=== PATIENT | male | born 1970 | race Caucasian/White ===

== ENCOUNTER 2016-09-12 06:29 | Emergency (ER) | payer OTHER ==
--- NOTE | 2016-09-12 09:26 | ED NURSING NOTES ---
Clinical Report - Nurses Merged With [facility] [address] [place] [address] 09/12/2016 6:31 [id number] Triage time 06:47 Sep 12 2016. Acuity: LEVEL 3. Chief Complaint: COUGH. SEPSIS SCREEN: Sepsis Screen: negative. Infection suspected/documented. PHILLIP COMA SCORE: Phillip Coma Scale: 15- eyes open spontaneously (4); best verbal response- oriented x 4 (5); best motor response- obeys commands (6). --06:54 Kelin Eden 06:47 09/12/16. BP: 148/78. HR: 84. RR: 20. O2 saturation: 99% on room air. Temp: 98.5 F (oral). Pain level now: 02/01. --06:54 Kelin Eden. Weight: 104.3 kg stated. Height/Length: 71 inches Per Patient. BMI: 32.1. --06:53 Kelin Eden. Medications ASA Oral. --06:49 Kelin Eden Lantus Subcutaneous. --06:49 Kelin Eden MetFORMIN HCl Oral. --06:49 Kelin Eden Lisinopril Oral. --06:49 Kelin Eden. Medication/allergy information source: the patient. --06:54 Kelin Eden. Allergies No Known Drug Allergy. --06:49 Kelin Eden. History Arrived by private vehicle. Historian: patient. Accompanied by family. Primary physician ([facility]). Onset. (3 months). ( Patient reports cough for three months. He states over the last three days he has had cough that results in vomiting. He reports two days of watery diarrhea as well. He states his back hurts from coughing so much. He reports being exposed to his daughter who was hospitalized with a serious stomach flu and respiratory symptoms. Patient reports he thinks he may have asthma but is not sure.). PAST MEDICAL HX: Diabetes mellitus. Hypertension. He has had contact with a sick individual. Immunizations: up-to-date. SOCIAL HX: Former smoker (smokes occasional cigarettes). No infectious disease exposure. ABUSE ASSESSMENT: No report of abuse. FALL RISK ASSESSMENT: Fall risk assessment completed. No fall risk identified. NUTRITIONAL RISK ASSESSMENT: The nutritional risk assessment revealed no deficiencies. FUNCTIONAL ASSESSMENT: Functional assessment: no impairments noted. LEARNING NEEDS ASSESSMENT: The learning needs assessment revealed no barriers. SKIN INTEGRITY ASSESSMENT: Skin integrity risk assessment completed. No skin integrity risk identified. --06:54 Kelin Eden. PROBLEMS: Cellulitis. Laceration. Depression. Arthritis. Hypertension. Diabetes Mellitus. --06:49 Kelin Eden. ADDITIONAL SURGERIES: Shoulder Surgery. --06:49 Kelin Eden. Interventions ID band on patient. To treatment room. --06:54 Kelin Eden. PHYSICAL ASSESSMENT GENERAL / NEURO / PSYCH: Alert. Oriented X 4. Appears in pain. HEENT: Mucous membranes are pink. RESPIRATORY: Respirations not labored. CVS: Normal sinus rhythm noted. GI / : Emesis noted. Has vomited twice. SKIN: Skin is warm and dry. --06:54 Kelin Eden. NURSING PROGRESS NOTES Pulse oximeter and NIBP monitor placed on patient; monitor alarms on. Patient gowned. Reassurance given to the patient. Two patient identifiers checked. Call light placed in reach. Side rails up x 1. Bed placed in lowest position. Brakes of bed on. Patient ready for evaluation- chart flagged and ED physician notified. --06:54 Kelin Eden 07:16 09/12/2016 Site #1 started via IV in the right forearm with an 20g angiocath, with aseptic technique and good blood return; one attempt. Blood drawn: rainbow set. Labeled in the presence of the patient and sent to the lab. Saline lock flushed with 10 mL saline. --07:16 Kelin Eden 07:16 09/12/2016 Started bag #1 1000 mL IV Fluids IV NS (Saline); at 1000 mL/hr over 1 hour(s) via site #1. Allergies verified and confirmed 5 rights. IV patency established. IV site checked: no pain, redness, or swelling. IV flushed thoroughly pre- and post-medication administration. --07:16 Kelin Eedn Patient ID band checked for patient name and birthdate: patient confirmed. Blood samples drawn from the right forearm peripheral IV site by nurse ; labeled in presence of the patient and sent to lab: rainbow set. Line flushed with 10 mL normal saline post blood draw. --07:18 Kelin Eden Care transferred and report given (Brianne RN). --07:21 Kelin Eden 07:26 09/12/2016 Albuterol Neb TX Nebulizer 1 unit dose given. Given by the respiratory therapist. Allergies verified and confirmed 5 rights. Ha Banuelosson --07:26 Valdo Banuelos 07:54 09/12/16. BP: 138/69. HR: 89. RR: 18. O2 saturation: 94%. Temp: 98.1 F. --07:54 Addie España 08:09 09/12/2016 Insulin REG IVP 7 unit given over 1 minute(s) via site #1. Allergies verified and confirmed 5 rights. IV patency established. IV site checked: no pain, redness, or swelling. IV flushed thoroughly pre- and post-medication administration. IVP given by RN. --08:09 Brianne Ramirez R.N. 09:19 09/12/16. Checked patient name and birthdate: patient confirmed urine collected; sample sent to lab for urinalysis. Specimen labeled in the presence of the patient. --09:19 Brianne Ramirez R.N. ( Glucose-244). --09:23 Addie España 09:56 09/12/2016 Site #1 removed. Bandage applied. --09:56 Won Stephens R.N. 09:57 09/12/2016 IV Fluids IV NS Discontinued: bag #1 infused. Total amount infused: 1000 mL. IV patency established. IV site checked: no pain, redness, or swelling. IV flushed thoroughly. --09:57 Won Stephens R.N. DISPOSITION / DISCHARGE 09:49 09/12/16. BP: 106/54. HR: 85. RR: 16. O2 saturation: 98%. Temp: 98.3 F. Pain level now: 01/02. --09:50 Won Stephens R.N. Condition at departure: improved and stable. The goals identified in the patient's plan of care were met. No learning barriers present. Discharge instructions provided and reviewed with the patient and spouse. Reviewed medication(s) side effects information. Prescription(s) given to the patient. Reviewed referral to a primary care physician for followup. Activity restrictions (rest) reviewed (for the next 2 days). Patient and spouse verbalized understanding. Written instructions provided in Chinese. The patient was discharged home and accompanied by spouse. He left the Emergency Department ambulatory and via private vehicle. Spouse driving. ( Pt stable, VSS, afebrile, ambulatory.). --09:56 Won Stephens R.N. Departure time: 09:56 Sep 12 2016. --09:56 Won Stephens R.N. Locked/Released at 09/12/2016 18:35 by Brianne Ramirez R.N.
--- NOTE | 2016-09-12 09:26 | ED CLINICAL REPORT ---
Clinical Report - Physicians/Mid Levels [facility] [address] [place] [address] 09/12/2016 6:31 [id number] Time Seen: 06:59 Sep 12 2016. Arrived- By private vehicle. Historian- patient. CPT: ER phys charges level 4 (#[id number]). HISTORY OF PRESENT ILLNESS Chief Complaint: COUGH. This started about 3 months [employer]; Onset. (3 months). ( Patient reports cough for three months. He states over the last three days he has had cough that results in vomiting. He reports two days of watery diarrhea as well. He states his back hurts from coughing so much. He reports being exposed to his daughter who was hospitalized with a serious stomach flu and respiratory symptoms. Vomiting and diarrhea have been present for 2 days. The rest of the family has the same thing. and is still present. The illness is described as moderate. The patient has had a cough and difficulty breathing. No sputum production, chest discomfort or pain, fever or chills. No sore throat, hoarseness, nasal congestion or discharge or sinus pressure. Additional history - The patient has had contact with a sick individual. Similar symptoms previously: None. Recent medical care: Not recently seen/assessed. REVIEW OF SYSTEMS The patient has had nausea, vomiting and diarrhea. No pedal edema, calf pain or skin rash. Pt living in house with mold, roommates cats and kids that smoke. All make him react with cough. All systems otherwise negative, except as recorded above. PAST HISTORY Cellulitis. Laceration. Depression. Arthritis. Hypertension. Diabetes Mellitus. Shoulder Surgery. Medications: Lisinopril Oral. MetFORMIN HCl Oral. Lantus Subcutaneous. ASA Oral. Allergies: No Known Drug Allergy. SOCIAL HISTORY Former smoker. No alcohol use or drug use. ADDITIONAL NOTES The nursing notes have been reviewed. PHYSICAL EXAM Vital Signs: 09/12/2016 06:47 BP: 148/78. HR: 84. RR: 20. O2 saturation: 99%. Temp: 98.5 F. Pain level now: 10/10. Appearance: Alert. No acute distress. Eyes: Eyes normal inspection. ENT: Ears normal. Nose normal. Pharynx normal. Uvula midline. Neck: Normal inspection. CVS: Normal heart rate and rhythm. Heart sounds normal. Pulses normal. Respiratory: No respiratory distress. Breath sounds normal. Abdomen: Soft and nontender. Skin: Skin warm. Normal skin color. No rash. Extremities: Extremities exhibit normal ROM. No lower extremity edema. Neuro: Oriented X 3. No motor deficit. No sensory deficit. LABS, X-RAYS, AND EKG Chest X-ray: Normal Chest X-Ray. Laboratory Tests: CBC w Diff: (CLAYTON: 09/12/2016 07:00) ( [facility] [place]) Final results Test Result Flag Units (Reference) WHITE BLOOD COUNT 6.1 K/uL (4.5-11.5) RED BLOOD COUNT 4.46 L M/uL (4.50-5.90) HEMOGLOBIN 13.6 gm/dL (13.5-17.5) HEMATOCRIT 39.6 L % (41.0-53.0) MEAN CELL VOLUME 89 fL (80-100) MEAN CORPUSCULAR HGB 31 pg (26-34) MEAN CORPUSCULAR HGB CONC 35 g/dL (31-37) RED CELL DISTRIBUTION WIDTH 14.9 H % (11.6-14.8) PLATELET COUNT 140 L K/uL (150-400) NEUTROPHIL % 73.6 % (50-75) LYMPH % 11.7 L % (25-40) MONO % 13.4 % (3-14) EOSINOPHIL % 0.9 % (0-4) BASOPHIL % 0.4 % (0-2) Acetone, Serum: (CLAYTON: 09/12/2016 07:00) ( MsgRcvd 09/12/2016 08:35) Final results Test Result Flag Units (Reference) ACETONE, SERUM QUALITATIVE NEGATIVE (NEGATIVE) CHEM 13 PANEL: (CLAYTON: 09/12/2016 07:00) ( MsgRcvd 09/12/2016 07:38) IP Test Result Flag Units (Reference) GLUCOSE 424 H mg/dL (70-110) BUN 29 H mg/dL (7-18) CREATININE 1.2 mg/dL (0.6-1.3) Estimated GFR >60 mL/min Estimated GFR- >60 mL/min Note: Persistent reduction over 3 months in eGFR<60 mL/min/1.73 m2 defines CKD. Patients with eGFR values>=60 mL/min/1.73 m2 may also have CKD if evidence ofpersistent proteinuria. Additional information may be foundat www.kidney.org. SODIUM 129 L mmol/L (136-145) POTASSIUM 3.4 L mmol/L (3.5-5.1) CHLORIDE 96 L mmol/L (98-107) CARBON DIOXIDE 20 L mmol/L (21-32) CALCIUM 8.5 mg/dL (8.5-10.1) TOTAL PROTEIN 7.6 g/dL (6.4-8.2) ALBUMIN 3.5 g/dL (3.3-5.0) BILIRUBIN, TOTAL 0.4 mg/dL (0.0-1.0) ALKALINE PHOSPHATASE 107 U/L (46-116) AST (SGOT) 35 U/L (15-37) ALT (SGPT) 42 U/L (12-78) CPK 162 U/L (24-260) MAGNESIUM 1.7 L mg/dL (1.8-2.4) TROPONIN I <0.05 L ng/mL (0.00-1.5) TROPONIN REFERENCE RANGE:<0.1 NEGATIVE0.1-1.5 INDETERMINANT>1.5 POSITIVE . PROGRESS AND PROCEDURES Course of Care: Pt has had cough for the past month and may be allergies vs other. He also has a viral gastroenteritis that is going around the family. IV NS Albuterol HHN to see if it helps the cough. Insulin 7 units IV for BS of 450. 09:17 09/12/16. BS 242. Patient/family counseled. Disposition: Discharged. Condition: stable and improved. CLINICAL IMPRESSION Acute norovirus gastroenteritis. Moderate hyperglycemia Allergy induced cough. INSTRUCTIONS No strenuous activity. Rest. Do not work for two days until better. Take clear liquids only (frequent sips) for the next 12 hours until better. Advance diet as tolerated. Warnings: Further evaluation is necessary. GENERAL WARNINGS: Return or contact your physician immediately if your condition worsens or changes unexpectedly, if not improving as expected, or if other problems arise. Your Current Medications: CONTINUE TAKING THE FOLLOWING MEDICATIONS: ASA Oral. Lantus Subcutaneous. Lisinopril Oral. MetFORMIN HCl Oral. Prescription Medications: Zofran (orally disintegrating tablets) 4 mg: take 1 orally every 4 hours as needed for nausea. Dispense ten (10). No refill. Substitution is permissible. Albuterol HFA oral inhaler: inhale 2 puffs via spacer every 4 hours as needed for wheezing or difficulty breathing, until symptoms improve. Dispense one (1) unit. No refill. (also for cough.) prednisone 40 mg po q day times 3 days. Follow-up: Follow up with your doctor in five days. Call for an appointment. Understanding of the discharge instructions verbalized by patient and family. Discharge instructions reviewed with and understanding was verbalized by spouse. (Electronically signed by Kee Johnson MD 09/15/2016 22:53)
--- NOTE | 2016-09-12 09:26 | ED ORDER SUMMARY ---
..... Patient: ADAM GOMEZ [facility] VisitID: [id number] [address] [place] [address] 46y, M Registration Date/Time: 09/12/2016 ORDER SHEET Weight: 104.3 kg (stated) Allergies: No Known Drug Allergy GENERAL ORDERS: Chest 2V Urgent (07:12 09/12/2016 Arabella LEWIS) (Ack 7:15 TBergley) (8:09 MWinterer R.N.) Cardiac Panel Stat (07:09/12/2016 Arabella LEWIS) (Ack 7:15 TBergley) (8:09 MWinterer R.N.) TSH Urgent (:09/12/2016 Arabella LEWIS) (Ack 7:15 TBergley) (8:09 MWinterer R.N.) UA-Culture if indicated Urgent (07:09/12/2016 Arabella LEWIS) (Ack 7:15 TBergley) (9:19 MWinterer R.N.) Acetone, Serum Urgent (08:26 09/12/2016 Arabella LEWIS) (Ack 8:27 TBergley) (8:30 TBergley) MEDICATION ORDERS: Albuterol Neb Tx 2.5 mg (NOW, HHN) (with pre and post -peak flows.) (07:09/12/2016 Arabella LEWIS) (Ack 7:17 HSoule) (7:26 JZiglar) IV FLUIDS: IV NS : initial bolus 1000 mL (1000 mL/hr), then none - for X1 (NOW); Routine (07:09/12/2016 Arabella LEWIS) (Ack 7:16 HSoule) (7:16 HSoule) Insulin Reg IV 7 units (NOW) (07:55 09/12/2016 Arabella LEWIS) (Ack 7:58 MWinterer R.N.) (8:09 MWinterer R.N.) ORDER SHEET NOTES: [Electronically signed by Brianne Ramirez R.N. (18:35 09/12/2016)] [Electronically signed by Kee Johnson MD (22:53 09/15/2016)] [Electronically locked/signed by Brianne Ramirez R.N. (18:35 09/12/2016)]
--- NOTE | 2016-09-12 09:26 | ED ORDER SUMMARY ---
..... Patient: ADAM GOMEZ OrderSheet [facility] VisitID: [id number] [address] [place] [address] 46y, M Registration Date/Time: 09/12/2016 ORDER SHEET Weight: 104.3 kg (stated) Allergies: No Known Drug Allergy GENERAL ORDERS: Chest 2V Urgent (07:12 09/12/2016 Arabella LEWIS) (Ack 7:15 TBergley) (8:09 MWinterer R.N.) Cardiac Panel Stat (07:09/12/2016 Arabella LEWIS) (Ack 7:15 TBergley) (8:09 MWinterer R.N.) TSH Urgent (:09/12/2016 Arabella LEWIS) (Ack 7:15 TBergley) (8:09 MWinterer R.N.) UA-Culture if indicated Urgent (07:09/12/2016 Arabella LEWIS) (Ack 7:15 TBergley) (9:19 MWinterer R.N.) Acetone, Serum Urgent (08:26 09/12/2016 Arabella LEWIS) (Ack 8:27 TBergley) (8:30 TBergley) MEDICATION ORDERS: Albuterol Neb Tx 2.5 mg (NOW, HHN) (with pre and post -peak flows.) (07:09/12/2016 Arabella LEWIS) (Ack 7:17 HSoule) (7:26 JZiglar) IV FLUIDS: IV NS : initial bolus 1000 mL (1000 mL/hr), then none - for X1 (NOW); Routine (07:09/12/2016 Arabella LEWIS) (Ack 7:16 HSoule) (7:16 HSoule) Insulin Reg IV 7 units (NOW) (07:55 09/12/2016 Arabella LEWIS) (Ack 7:58 MWinterer R.N.) (8:09 MWinterer R.N.) ORDER SHEET NOTES: [Electronically signed by Brianne Ramirez R.N. (18:35 09/12/2016)] [Electronically signed by Kee Johnson MD (22:53 09/15/2016)] [Electronically locked/signed by Brianne Ramirez R.N. (18:35 09/12/2016)]
--- NOTE | 2016-09-12 09:26 | ED CLINICAL REPORT ---
Clinical Report - Physicians/Mid Levels [facility] [address] [place] [address] 09/12/2016 6:31 [id number] Time Seen: 06:59 Sep 12 2016. Arrived- By private vehicle. Historian- patient. CPT: ER phys charges level 4 (#[id number]). HISTORY OF PRESENT ILLNESS Chief Complaint: COUGH. This started about 3 months [employer]IVE; Onset. (3 months). ( Patient reports cough for three months. He states over the last three days he has had cough that results in vomiting. He reports two days of watery diarrhea as well. He states his back hurts from coughing so much. He reports being exposed to his daughter who was hospitalized with a serious stomach flu and respiratory symptoms. Vomiting and diarrhea have been present for 2 days. The rest of the family has the same thing. and is still present. The illness is described as moderate. The patient has had a cough and difficulty breathing. No sputum production, chest discomfort or pain, fever or chills. No sore throat, hoarseness, nasal congestion or discharge or sinus pressure. Additional history - The patient has had contact with a sick individual. Similar symptoms previously: None. Recent medical care: Not recently seen/assessed. REVIEW OF SYSTEMS The patient has had nausea, vomiting and diarrhea. No pedal edema, calf pain or skin rash. Pt living in house with mold, roommates cats and kids that smoke. All make him react with cough. All systems otherwise negative, except as recorded above. PAST HISTORY Cellulitis. Laceration. Depression. Arthritis. Hypertension. Diabetes Mellitus. Shoulder Surgery. Medications: Lisinopril Oral. MetFORMIN HCl Oral. Lantus Subcutaneous. ASA Oral. Allergies: No Known Drug Allergy. SOCIAL HISTORY Former smoker. No alcohol use or drug use. ADDITIONAL NOTES The nursing notes have been reviewed. PHYSICAL EXAM Vital Signs: 09/12/2016 06:47 BP: 148/78. HR: 84. RR: 20. O2 saturation: 99%. Temp: 98.5 F. Pain level now: 10/10. Appearance: Alert. No acute distress. Eyes: Eyes normal inspection. ENT: Ears normal. Nose normal. Pharynx normal. Uvula midline. Neck: Normal inspection. CVS: Normal heart rate and rhythm. Heart sounds normal. Pulses normal. Respiratory: No respiratory distress. Breath sounds normal. Abdomen: Soft and nontender. Skin: Skin warm. Normal skin color. No rash. Extremities: Extremities exhibit normal ROM. No lower extremity edema. Neuro: Oriented X 3. No motor deficit. No sensory deficit. LABS, X-RAYS, AND EKG Chest X-ray: Normal Chest X-Ray. Laboratory Tests: CBC w Diff: (CLAYTON: 09/12/2016 07:00) ( [facility] [place] 09/12/[place] 07:24) Final results Test Result Flag Units (Reference) WHITE BLOOD COUNT 6.1 K/uL (4.5-11.5) RED BLOOD COUNT 4.46 L M/uL (4.50-5.90) HEMOGLOBIN 13.6 gm/dL (13.5-17.5) HEMATOCRIT 39.6 L % (41.0-53.0) MEAN CELL VOLUME 89 fL (80-100) MEAN CORPUSCULAR HGB 31 pg (26-34) MEAN CORPUSCULAR HGB CONC 35 g/dL (31-37) RED CELL DISTRIBUTION WIDTH 14.9 H % (11.6-14.8) PLATELET COUNT 140 L K/uL (150-400) NEUTROPHIL % 73.6 % (50-75) LYMPH % 11.7 L % (25-40) MONO % 13.4 % (3-14) EOSINOPHIL % 0.9 % (0-4) BASOPHIL % 0.4 % (0-2) Acetone, Serum: (CLAYTON: 09/12/2016 07:00) ( MsgRcvd 09/12/2016 08:35) Final results Test Result Flag Units (Reference) ACETONE, SERUM QUALITATIVE NEGATIVE (NEGATIVE) CHEM 13 PANEL: (CLAYTON: 09/12/2016 07:00) ( MsgRcvd 09/12/2016 07:38) IP Test Result Flag Units (Reference) GLUCOSE 424 H mg/dL (70-110) BUN 29 H mg/dL (7-18) CREATININE 1.2 mg/dL (0.6-1.3) Estimated GFR >60 mL/min Estimated GFR- >60 mL/min Note: Persistent reduction over 3 months in eGFR<60 mL/min/1.73 m2 defines CKD. Patients with eGFR values>=60 mL/min/1.73 m2 may also have CKD if evidence ofpersistent proteinuria. Additional information may be foundat www.kidney.org. SODIUM 129 L mmol/L (136-145) POTASSIUM 3.4 L mmol/L (3.5-5.1) CHLORIDE 96 L mmol/L (98-107) CARBON DIOXIDE 20 L mmol/L (21-32) CALCIUM 8.5 mg/dL (8.5-10.1) TOTAL PROTEIN 7.6 g/dL (6.4-8.2) ALBUMIN 3.5 g/dL (3.3-5.0) BILIRUBIN, TOTAL 0.4 mg/dL (0.0-1.0) ALKALINE PHOSPHATASE 107 U/L (46-116) AST (SGOT) 35 U/L (15-37) ALT (SGPT) 42 U/L (12-78) CPK 162 U/L (24-260) MAGNESIUM 1.7 L mg/dL (1.8-2.4) TROPONIN I <0.05 L ng/mL (0.00-1.5) TROPONIN REFERENCE RANGE:<0.1 NEGATIVE0.1-1.5 INDETERMINANT>1.5 POSITIVE . PROGRESS AND PROCEDURES Course of Care: Pt has had cough for the past month and may be allergies vs other. He also has a viral gastroenteritis that is going around the family. IV NS Albuterol HHN to see if it helps the cough. Insulin 7 units IV for BS of 450. 09:17 09/12/16. BS 242. Patient/family counseled. Disposition: Discharged. Condition: stable and improved. CLINICAL IMPRESSION Acute norovirus gastroenteritis. Moderate hyperglycemia Allergy induced cough. INSTRUCTIONS No strenuous activity. Rest. Do not work for two days until better. Take clear liquids only (frequent sips) for the next 12 hours until better. Advance diet as tolerated. Warnings: Further evaluation is necessary. GENERAL WARNINGS: Return or contact your physician immediately if your condition worsens or changes unexpectedly, if not improving as expected, or if other problems arise. Your Current Medications: CONTINUE TAKING THE FOLLOWING MEDICATIONS: ASA Oral. Lantus Subcutaneous. Lisinopril Oral. MetFORMIN HCl Oral. Prescription Medications: Zofran (orally disintegrating tablets) 4 mg: take 1 orally every 4 hours as needed for nausea. Dispense ten (10). No refill. Substitution is permissible. Albuterol HFA oral inhaler: inhale 2 puffs via spacer every 4 hours as needed for wheezing or difficulty breathing, until symptoms improve. Dispense one (1) unit. No refill. (also for cough.) prednisone 40 mg po q day times 3 days. Follow-up: Follow up with your doctor in five days. Call for an appointment. Understanding of the discharge instructions verbalized by patient and family. Discharge instructions reviewed with and understanding was verbalized by spouse. (Electronically signed by Kee Johnson MD 09/15/2016 22:53)
--- NOTE | 2016-09-12 10:11 | DIAGNOSTIC IMAGING REPORT ---
PROCEDURE: XR CHEST 2 VIEW INDICATION: Cough. Recent gastroenteritis. TECHNIQUE: PA and lateral views. COMPARISON: None. FINDINGS: Allowing for suboptimal inspiration, lungs are clear. Heart and mediastinum are normal. Thorax is normal. There is mild to moderate gaseous distention of small bowel and colon (partially visualized). IMPRESSION: 1. Negative chest. 2. Mild to moderate gaseous distention of the small bowel and colon (may be a reflection of recent gastroenteritis). 3. Findings discussed with Dr. Kee Johnson.
--- NOTE | 2016-09-15 22:54 | ED MAR SUMMARY ---
..... Medication Administration Record [facility] [address] [place] [address] Patient: ADAM GOMEZ Visit ID: [id number] 46y, M Weight: 104.3 kg Height/Length: 71 in BMI: 32.1 ALLERGIES: No Known Drug Allergy Start 07:16 09/12/2016 Kelin Eden,, Stop 09:57 09/12/2016 Won Stephens, R.N. Medication Administered: IV NS (SALINE), Dose: IV Fluids over 1 hour(s), Rate: 1000 mL/hr, Dispensed: 1000 mL bag, Site: #1 right forearm. Medication Ordered: IV NS : initial bolus 1000 mL (1000 mL/hr), then none - for X1 (NOW); Routine. Given 07:26 09/12/2016 Valdo Banuelos, Medication Administered: ALBUTEROL [NEB TX], Dose: 1 unit dose Nebulizer Neb TX. Medication Ordered: Albuterol Neb Tx 2.5 mg (NOW, N) (with pre and post -peak flows.). Given 08:09 09/12/2016 Brianne Ramirez RMonroe. Medication Administered: INSULIN REG [IVP], Dose: 7 unit IVP over 1 minute(s), Site: #1 right forearm. Medication Ordered: Insulin Reg IV 7 units (NOW).
--- NOTE | 2016-09-15 22:54 | ED MED RECONCILIATION SUMMARY ---
Patient: ADAM GOMEZ Medication Reconciliation Report [facility] VisitID: [id number] [address] [place] [address] 46y, M Registration Date/Time: 09/12/2016 Weight: 104.3 kg Height/Length: 71 in. BMI: 32.1 ALLERGIES: No Known Drug Allergy The patient's Home Medications are listed below: CONTINUE TAKING THE FOLLOWING MEDICATIONS: ASA Oral Lantus Subcutaneous Lisinopril Oral MetFORMIN HCl Oral The source(s) of the original Home Medication information: patient The following Medications were given to the patient in the Emergency Department: IV NS IV Fluids bolus 0, then 1000 mL/hr, administered: 09/12/2016 7:16:00 AM Albuterol [Neb Tx] Neb TX 1 unit dose, administered: 09/12/2016 7:26:00 AM Insulin REG [IVP] IVP 7 unit, administered: 09/12/2016 8:09:00 AM The following Medications were prescribed to the patient: Zofran (orally disintegrating tablets) 4 mg: take 1 orally every 4 hours as needed for nausea. Dispense ten (10). No refill. Substitution is permissible. -- Kee Johnson MD prednisone 40 mg po q day times 3 days. -- Kee Johnson MD Albuterol HFA oral inhaler: inhale 2 puffs via spacer every 4 hours as needed for wheezing or difficulty breathing, until symptoms improve. Dispense one (1) unit. No refill.(also for cough.) -- Kee Johnson MD
--- NOTE | 2016-09-15 22:54 | ED MED RECONCILIATION SUMMARY ---
Patient: ADAM GOMEZ Medication Reconciliation Report [facility] VisitID: [id number] [address] [place] [address] 46y, M Registration Date/Time: 09/12/2016 Weight: 104.3 kg Height/Length: 71 in. BMI: 32.1 ALLERGIES: No Known Drug Allergy The patient's Home Medications are listed below: CONTINUE TAKING THE FOLLOWING MEDICATIONS: ASA Oral Lantus Subcutaneous Lisinopril Oral MetFORMIN HCl Oral The source(s) of the original Home Medication information: patient The following Medications were given to the patient in the Emergency Department: IV NS IV Fluids bolus 0, then 1000 mL/hr, administered: 09/12/2016 7:16:00 AM Albuterol [Neb Tx] Neb TX 1 unit dose, administered: 09/12/2016 7:26:00 AM Insulin REG [IVP] IVP 7 unit, administered: 09/12/2016 8:09:00 AM The following Medications were prescribed to the patient: Zofran (orally disintegrating tablets) 4 mg: take 1 orally every 4 hours as needed for nausea. Dispense ten (10). No refill. Substitution is permissible. -- Kee Johnson MD prednisone 40 mg po q day times 3 days. -- Kee Johnson MD Albuterol HFA oral inhaler: inhale 2 puffs via spacer every 4 hours as needed for wheezing or difficulty breathing, until symptoms improve. Dispense one (1) unit. No refill.(also for cough.) -- Kee Johnson MD
--- NOTE | 2016-09-15 22:54 | ED DISCHARGE INSTRUCTIONS ---
Patient: ADAM GOMEZ General Instructions [facility] VisitID: [id number] [address] [place] [address] 46y, M Registration Date/Time: 09/12/2016 Acute norovirus gastroenteritis. Moderate hyperglycemia Allergy induced cough. INSTRUCTIONS No strenuous activity. Rest. Do not work for two days until better. Take clear liquids only (frequent sips) for the next 12 hours until better. Advance diet as tolerated. Warnings: Further evaluation is necessary. GENERAL WARNINGS: Return or contact your physician immediately if your condition worsens or changes unexpectedly, if not improving as expected, or if other problems arise. Your Current Medications: CONTINUE TAKING THE FOLLOWING MEDICATIONS: ASA Oral. Lantus Subcutaneous. Lisinopril Oral. MetFORMIN HCl Oral. Prescription Medications: Zofran (orally disintegrating tablets) 4 mg: take 1 orally every 4 hours as needed for nausea. Dispense ten (10). No refill. Substitution is permissible. Albuterol HFA oral inhaler: inhale 2 puffs via spacer every 4 hours as needed for wheezing or difficulty breathing, until symptoms improve. Dispense one (1) unit. No refill. (also for cough.) prednisone 40 mg po q day times 3 days. Follow-up: Follow up with your doctor in five days. Call for an appointment. Understanding of the discharge instructions verbalized by patient and family. Discharge instructions reviewed with and understanding was verbalized by spouse. ADDITIONAL INFORMATION Viral Gastroenteritis (6Yr-Adult) Gastroenteritis is another name for thestomach flu.It is most often caused by a virus that affects the stomach and intestinal tract. Symptoms include stomach cramping and fever, vomiting and/or diarrhea, and can last from 2 to 7 days. The danger from repeated vomiting or diarrhea is dehydration. This is the loss of too much water and minerals from the body. When this occurs, body fluids must be replaced. Antibiotics are not effective for this illness, but simple home treatment will be helpful. Home Care If symptoms are severe, rest at home for the next 24 hours. Avoid tobacco, caffeine, and alcohol use, which can worsen symptoms. Acetaminophen (Tylenol) or ibuprofen (Motrin, Advil) may be usedfor fever or pain unless another medication was prescribed. NOTE: If you have chronic liver or kidney disease or ever had a stomach ulcer or GI bleeding, talk with your doctor before using these medicines. Aspirin should never be used in anyone under 18 years of age who is ill with a fever. It may cause severe liver damage. If medicines for diarrhea or vomiting were prescribed, be sure they are takenonly as directed. If vomiting, drink small amounts of clear fluids (such as water, sports drinks, clear sodas) at frequent intervals to prevent dehydration. Start with 1 to 2 tablespoons every 10 minutes. Once vomiting stops, follow these guidelines: During The First 12 To 24 Hours follow the diet below: Beverages: Sport drinks like Gatorade, soft drinks without caffeine; leon benjamin, mineral water (plain or flavored), decaffeinated tea and coffee. Soups: Clear broth, consomm and bouillon Desserts: Plain gelatin (Jell-O), Popsicles and fruit juice bars. During The Next 24 Hours you may add the following to the above: Hot cereal, plain toast, bread, rolls, crackers Plain noodles, rice, mashed potatoes, chicken noodle or rice soup Unsweetened canned fruit (avoid pineapple), bananas Limit fat intake to less than 15 grams per day by avoiding margarine, butter, oils, mayonnaise, sauces, gravies, fried foods, peanut butter, meat, poultry, and fish. Limit fiber; avoid raw or cooked vegetables, fresh fruits (except bananas), and bran cereals. Limit caffeine and chocolate. Do not use spices or seasonings except salt. During The Next 24 Hours The patient can gradually resume a normal diet as symptoms lessen. Preventing Spread Hand washing with soap and water is the best way to prevent the spread of viruses. Caregivers should wash their hands before andafter touching the sick person. The sick person, as well as everyone in the family,should wash their hands after using the toilet and before meals. Clean the toilet after each use. People with diarrhea should not prepare food for others. If you are preparing your own foods, wash your hands before and after. Follow Up with your doctor as advised. Call your doctor if you are not improving over the next 2 to 3 days. If a stool (diarrhea) sample was taken, you may call in 2 days (or as directed) for the results. Get Prompt Medical Attention if any of the following occur: Increasing abdominal pain Continued vomiting (unable to keep liquids down) Frequent diarrhea (more than 5 times a day) Blood in vomit or stool (black or red color) Dark urine, reduced urine output, or extreme thirst Weakness, dizziness, fainting Drowsiness, confusion, stiff neck, or seizure Fever of 100.4F (38C) oral or higher, not better with fever medication New rash Diabetes with High Blood Sugar You have been treated for high blood sugar (hyperglycemia). This may be becauseof an infection or other illness;eating too many sweets or starches ; not taking enough insulin. Home care High blood sugar may cause symptoms that you can learn to recognize, such as these: If you feel like your blood sugar may be too high, measure it using a blood or urine test. If it is above your usual range, use the "sliding scale"rRegular insulin dose your doctor gave you to correct this. If no "sliding scale" orders were given, contact your doctor for further advice. If your blood sugar is over 300, and you can't reach your doctor, go to the hospital emergency room. Monitor and write down your blood sugars - and insulin dose, if you take insulin - atleast twice a day. Do this before breakfast and before dinner. Do this for the next 3 to 5 days. Follow-up care Follow up with your health care provderduring the next week to review your blood sugar records. You will find out if you need to adjust your dose of insulin or other medicine for blood sugar. When to seek medical care Get prompt medical attention if either of these occur: High blood sugar.Symptoms are frequent urination, feeling dizzy, thirst, headache, nausea or vomiting, abdominal pain, and drowsiness or loss of consciousness. Low blood sugar. Symptoms are fatigue, headache, shakes, excess sweating, hunger, anxiety, reduced vision, drowsiness, weakness, confusion or loss of consciousness, and seizure. Clear Liquid Diet Clear liquids are any liquid that you can see through as well as those that are very easy to digest. This is used while the body is recovering from irritation or infection of the stomach or intestinal tract. It may also be used before special procedures or surgery. This diet is to be used no more than three days. You may include the following items. Adults Adults should drink a total of 23 quarts of liquid per day. It may be easier to drink small frequent servings rather than a few large ones. Liquids can include: Fruit juices.Strained orange juice or lemonade (no pulp), apple, grape and cranberry juice, clear fruit drinks, sports drinks Beverages.Sport drinks, sodas, mineral water (plain or flavored), tea, black coffee, liquid gelatin (add twice the recommended amount of water) Soups.Clear broth, consomm, bouillon Desserts.Plain gelatin, popsicles, fruit juice bars Children Over 2 years old The following liquids are acceptable for children over age 2: Fruit juices.Strained orange juice or lemonade (no pulp), apple, grape and cranberry juice, clear fruit drinks Beverages. Sports drinks, sodas, mineral water (plain or flavored), tea, liquid gelatin (add twice the recommended amount of water) Soups. Clear broth, consomm, bouillon Desserts. Plain gelatin, popsicles, fruit juice bars Children under 2 years old Oral rehydration fluids such are available at drug stores and most grocery stores without a prescription. Ondansetron Oral disintegrating tablet What is this medicine? ONDANSETRON (on BELLE se cynthia) is used to treat nausea and vomiting caused by chemotherapy. It is also used to prevent or treat nausea and vomiting after surgery. How should I use this medicine? These tablets are made to dissolve in the mouth. Do not try to push the tablet through the foil backing. With dry hands, peel away the foil backing and gently remove the tablet. Place the tablet in the mouth and allow it to dissolve, then swallow. While you may take these tablets with water, it is not necessary to do so. Talk to your human resources admin regarding the use of this medicine in children. Special care may be needed. What side effects may I notice from receiving this medicine? Side effects that you should report to your doctor or health resident care associate as soon as possible: allergic reactions like skin rash, itching or hives, swelling of the face, lips, or tongue breathing problems dizziness fast or irregular heartbeat feeling faint or lightheaded, falls fever and chills swelling of the hands and feet tightness in the chest Side effects that usually do not require medical attention (report to your doctor or health resident care associate if they continue or are bothersome): constipation or diarrhea headache What may interact with this medicine? Do not take this medicine with any of the following medications: -apomorphine -cisapride -dofetilide -dronedarone -pimozide -thioridazine -ziprasidone This medicine may also interact with the following medications: -carbamazepine -phenytoin -rifampicin -tramadol -other medicines that prolong the QT interval (cause an abnormal heart rhythm) What if I miss a dose? If you miss a dose, take it as soon as you can. If it is almost time for your next dose, take only that dose. Do not take double or extra doses. Where should I keep my medicine? Keep out of the reach of children. Store between 2 and 30 degrees C (36 and 86 degrees F). Throw away any unused medicine after the expiration date. What should I tell my health care provider before I take this medicine? They need to know if you have any of these conditions: heart disease history of irregular heartbeat liver disease low levels of magnesium or potassium in the blood an unusual or allergic reaction to ondansetron, granisetron, other medicines, foods, dyes, or preservatives or trying to get breast-feeding What should I watch for while using this medicine? Check with your doctor or health resident care associate as soon as you can if you have any sign of an allergic reaction. Albuterol Sulfate Pressurized inhalation, suspension What is this medicine? ALBUTEROL (al BYOO ter ole) is a bronchodilator. It helps open up the airways in your lungs to make it easier to breathe. This medicine is used to treat and to prevent bronchospasm. How should I use this medicine? This medicine is for inhalation through the mouth. Follow the directions on your prescription label. Take your medicine at regular intervals. Do not use more often than directed. Make sure that you are using your inhaler correctly. Ask you doctor or health care provider if you have any questions. Talk to your human resources admin regarding the use of this medicine in children. Special care may be needed. What side effects may I notice from receiving this medicine? Side effects that you should report to your doctor or health resident care associate as soon as possible: allergic reactions like skin rash, itching or hives, swelling of the face, lips, or tongue breathing problems chest pain feeling faint or lightheaded, falls high blood pressure irregular heartbeat fever muscle cramps or weakness pain, tingling, numbness in the hands or feet vomiting Side effects that usually do not require medical attention (report to your doctor or health resident care associate if they continue or are bothersome): cough difficulty sleeping headache nervousness or trembling stomach upset stuffy or runny nose throat irritation unusual taste What may interact with this medicine? anti-infectives like chloroquine and pentamidine caffeine cisapride diuretics medicines for colds medicines for depression or for emotional or psychotic conditions medicines for weight loss including some herbal products methadone some antibiotics like clarithromycin, erythromycin, levofloxacin, and linezolid some heart medicines steroid hormones like dexamethasone, cortisone, hydrocortisone theophylline thyroid hormones What if I miss a dose? If you miss a dose, use it as soon as you can. If it is almost time for your next dose, use only that dose. Do not use double or extra doses. Where should I keep my medicine? Keep out of the reach of children. Store at room temperature between 15 and 30 degrees C (59 and 86 degrees F). The contents are under pressure and may burst when exposed to heat or flame. Do not freeze. This medicine does not work as well if it is too cold. Throw away any unused medicine after the expiration date. Inhalers need to be thrown away after the labeled number of puffs have been used or by the expiration date; whichever comes first. Ventolin HFA should be thrown away 12 months after removing from foil pouch. Check the instructions that come with your medicine. What should I tell my health care provider before I take this medicine? They need to know if you have any of the following conditions: diabetes heart disease or irregular heartbeat high blood pressure pheochromocytoma seizures thyroid disease an unusual or allergic reaction to albuterol, levalbuterol, sulfites, other medicines, foods, dyes, or preservatives or trying to get breast-feeding What should I watch for while using this medicine? Tell your doctor or health resident care associate if your symptoms do not improve. Do not use extra albuterol. If your asthma or bronchitis gets worse while you are using this medicine, call your doctor right away. If your mouth gets dry try chewing sugarless gum or sucking hard candy. Drink water as directed. You have been given the following additional information: Gastroenteritis, Viral (6Y-Adult) Diabetic Hyperglycemia Diet, Clear Liquid Ondansetron Oral disintegrating tablet Albuterol Sulfate Pressurized inhalation, suspension No strenuous activity. Rest. Do not work for two days until better. (Electronically signed by Kee Johnson MD 09/15/2016 22:53)
--- NOTE | 2016-09-15 22:54 | ED MAR SUMMARY ---
..... Medication Administration Record [facility] [address] [place] [address] Patient: ADAM GOMEZ Visit ID: [id number] 46y, M Weight: 104.3 kg Height/Length: 71 in BMI: 32.1 ALLERGIES: No Known Drug Allergy Start 07:16 09/12/2016 Kelin Eden,, Stop 09:57 09/12/2016 Won Stephens, R.N. Medication Administered: IV NS (SALINE), Dose: IV Fluids over 1 hour(s), Rate: 1000 mL/hr, Dispensed: 1000 mL bag, Site: #1 right forearm. Medication Ordered: IV NS : initial bolus 1000 mL (1000 mL/hr), then none - for X1 (NOW); Routine. Given 07:26 09/12/2016 Valdo Banuelos, Medication Administered: ALBUTEROL [NEB TX], Dose: 1 unit dose Nebulizer Neb TX. Medication Ordered: Albuterol Neb Tx 2.5 mg (NOW, N) (with pre and post -peak flows.). Given 08:09 09/12/2016 Brianne Ramirez RMonroe. Medication Administered: INSULIN REG [IVP], Dose: 7 unit IVP over 1 minute(s), Site: #1 right forearm. Medication Ordered: Insulin Reg IV 7 units (NOW).
== END 2016-09-12 09:56 | disposition home or self-care (01) ==
LOC: ED SRH 06:29
DX: R05 Cough (principal); E11.65 Type 2 diabetes mellitus with hyperglycemia; A08.11 Acute gastroenteropathy due to Norwalk agent; I10 Essential (primary) hypertension; Z79.84 Long term (current) use of oral hypoglycemic drugs; Z79.4 Long term (current) use of insulin; Z79.899 Other long term (current) drug therapy; Z79.82 Long term (current) use of aspirin; Z87.891 Personal history of nicotine dependence
CPT/HCPCS: 90004; 90100; 90301; 90616; 92610; 92720; 93140; 95059